=== PATIENT | male | born 1970 | race Caucasian/White ===

== ENCOUNTER 2021-10-27 17:20 | Emergency (ER) | payer OTHER ==
[2021-10-27 18:08] LABS: HEMOGLOBIN 13.6 gm/dl (14.0-17.5); RED BLOOD COUNT 4.34 M/UL (4.20-5.50); WHITE BLOOD COUNT 9.3 K/UL (4.5-11.0)
[2021-10-27] MEDS ORDERED: PROTONIX40 MG PO (20:20)
== END 2021-10-27 21:15 | disposition home or self-care (01) ==
LOC: ER1 17:20
PROVIDERS: Emergency Medicine; Preventive Medicine Occupational Medicine
DX: K29.00 Acute gastritis without bleeding (principal); F15.10 Other stimulant abuse, uncomplicated; I25.10 Atherosclerotic heart disease of native coronary artery without angina pectoris; I10 Essential (primary) hypertension
CPT/HCPCS: 80053; 80307; 81001; 82009; 82140; 83690; 85025; 85610; 85652; 85730; 86140; 86850; 86900; 86901; 96374; 96375; 99284; C9113; G0480; J2060; J2405; Q9967